=== PATIENT | female | born 1950 | race Caucasian/White ===

== ENCOUNTER → 2016-06-23 | Outpatient (CLI) | payer BC ==
[2016-06-23 11:20] LABS: C Reactive Protein 7.6 mg/L (<10.0)
== END | disposition home or self-care (01) ==
LOC: LABWHC1 10:10
PROVIDERS: ATTEND Internal Medicine
DX: E78.5 Hyperlipidemia, unspecified (principal); E55.9 Vitamin D deficiency, unspecified
CPT/HCPCS: 36415; 80061; 82306; 82550; 82785; 84439; 84443; 85652; 86140

== ENCOUNTER → 2016-06-29 | Outpatient (CLI) | payer BC ==
[2016-06-29 14:29] LABS: Basophils # (A) 0.2 k/uL (0-0.2); Basophils % (A) 2 %; CH 29.4; CHCM 33.3; Eosinophils # (A) 0.2 k/uL (0-0.7); Eosinophils % (A) 2 %; HDW 2.46; HGB 13.8 gm/dL (11.4-16.0); Luc # (Auto) 0.26; Luc % (Auto) 3; Lymphocytes # (A) 2.7 k/uL (1.0-4.8); Lymphocytes % (A) 30 %; MCH 28.4 pg (25.0-35.0); MCV 88.7 fL (80.0-100.0); Mean Platelet Volume 7.7; Monocytes # (A) 0.5 k/uL (0-1.0); Monocytes % (A) 6 %; Neutrophils # (A) 5.3 k/uL (1.3-7.7); Neutrophils % (A) 58 %; RBC 4.85 m/uL (3.80-5.40); RDW 12.2 % (11.5-15.5); WBC 9.2 k/uL (3.8-10.6); WBC (Perox) 9.64
[2016-06-29 14:36] LABS: Bilirubin, Delta 0.2 mg/dL (0.0-0.2); Total Bilirubin 0.5 mg/dL (0.2-1.3); Total Protein 7.4 g/dL (6.3-8.2)
== END | disposition home or self-care (01) ==
LOC: LABWHC1 14:03
PROVIDERS: ATTEND Internal Medicine
DX: K58.9 Irritable bowel syndrome, unspecified (principal)
CPT/HCPCS: 36415; 80076; 85025

== ENCOUNTER → 2017-01-03 | Outpatient (CLI) | payer BC | END | disposition home or self-care (01) | LOC: LABWHC1 10:43 | PROVIDERS: ATTEND Obstetrics & Gynecology Obstetrics | DX: R07.9 Chest pain, unspecified (principal) | CPT/HCPCS: 36415; 93005 ==

== ENCOUNTER → 2017-02-16 | Outpatient (CLI) | payer BC ==
[2017-02-16 16:43] LABS: Gliadin AB IgA, Deaminated NEGATIVE (NEGATIVE); Gliadin AB IgG, Deaminated NEGATIVE (NEGATIVE); Gliadin AB IgG, Unit <0.4 U/mL; Tis Transglutaminase IgA Unit <0.5 AI; Tis Transglutaminase IgG Unit 1.4 U/mL
== END | disposition home or self-care (01) ==
LOC: LABWHC1 02-11 12:16
PROVIDERS: ATTEND Internal Medicine
DX: K27.9 Peptic ulcer, site unspecified, unspecified as acute or chronic, without hemorrhage or perforation (principal); K90.0 Celiac disease; R19.7 Diarrhea, unspecified
CPT/HCPCS: 36415; 82941; 83516

== ENCOUNTER → 2017-07-12 | Outpatient (CLI) | payer MEDICARE, BC ==
[2017-07-12 09:07] LABS: Basophils # (A) 0.1 k/uL (0-0.2); Basophils % (A) 1 %; Eosinophils # (A) 0.3 k/uL (0-0.7); Eosinophils % (A) 4 %; HCT 43.2 % (34.0-46.0); HGB 13.9 gm/dL (11.4-16.0); Lymphocytes # (A) 2.2 k/uL (1.0-4.8); Lymphocytes % (A) 30 %; MCH 27.9 pg (25.0-35.0); MCHC 32.3 g/dL (31.0-37.0); MCV 86.4 fL (80.0-100.0); Mean Platelet Volume 7.3; Monocytes # (A) 0.5 k/uL (0-1.0); Monocytes % (A) 7 %; Neutrophils # (A) 4.2 k/uL (1.3-7.7); Neutrophils % (A) 57 %; Platelet Count 303 k/uL (150-450); RBC 4.99 m/uL (3.80-5.40); RDW 12.3 % (11.5-15.5); WBC 7.4 k/uL (3.8-10.6)
[2017-07-12 09:35] LABS: ALT 19 U/L (9-52); AST 15 U/L (14-36); Albumin 4.1 g/dL (3.5-5.0); Alkaline Phosphatase 60 U/L (38-126); Anion Gap 14 mmol/L; Blood Urea Nitrogen 17 mg/dL (7-17); Calcium 9.8 mg/dL (8.4-10.2); Carbon Dioxide 24 mmol/L (22-30); Chloride 106 mmol/L (98-107); Cholesterol 184 mg/dL (<200); Glucose 89 mg/dL (74-99); HDL Cholesterol 108 mg/dL (40-60); LDL Cholesterol,Calculated 65 mg/dL (0-99); Sodium 144 mmol/L (137-145); Total Bilirubin 0.4 mg/dL (0.2-1.3); Total Protein 6.7 g/dL (6.3-8.2); Triglycerides 57 mg/dL (<150)
== END | disposition home or self-care (01) ==
LOC: LABWHC1 08:02
PROVIDERS: ATTEND Internal Medicine
DX: E78.5 Hyperlipidemia, unspecified (principal); I10 Essential (primary) hypertension; Z78.0 Asymptomatic menopausal state
CPT/HCPCS: 36415; 80053; 80061; 82306; 84443; 85025

== ENCOUNTER → 2017-08-10 | Outpatient (CLI) | payer MEDICARE, BC ==
--- NOTE | 2017-08-11 08:55 | MM ---
Reason for exam: screening (asymptomatic). Last mammogram was performed 1 year and 7 months ago. History: Patient is postmenopausal. Benign stereotactic core biopsy of the left breast, May 13, 2003. Core biopsy of the left breast. Took hormonal contraceptives for 5 years beginning at age 22. Took estrogen for 8 years 1 month beginning at age 46. Physical Findings: A clinical breast exam by your physician is recommended on an annual basis and results should be correlated with mammographic findings. MG 3D Screening Mammo W/Cad Bilateral CC and MLO view(s) were taken. Prior study comparison: December 29, 2015, bilateral MG screening mammo w CAD. June 18, 2013, bilateral digital screening mammo w/CAD. There are scattered fibroglandular densities. Previous mammotome biopsy in the left breast. There is no discrete abnormality. ASSESSMENT: Benign, BI-RAD 2 RECOMMENDATION: Routine screening mammogram of both breasts in 1 year.
== END | disposition home or self-care (01) ==
LOC: RADMAMWWP 10:55
PROVIDERS: ATTEND Internal Medicine
DX: Z12.31 Encounter for screening mammogram for malignant neoplasm of breast (principal)
CPT/HCPCS: 77063; 77067

== ENCOUNTER → 2018-10-26 | Outpatient (CLI) | payer MEDICARE, BC ==
[2018-10-26 07:29] LABS: Basophils # (A) 0.1 k/uL (0-0.2); Basophils % (A) 1 %; Eosinophils # (A) 0.2 k/uL (0-0.7); Eosinophils % (A) 3 %; HCT 45.3 % (34.0-46.0); HGB 14.6 gm/dL (11.4-16.0); Lymphocytes # (A) 2.3 k/uL (1.0-4.8); Lymphocytes % (A) 30 %; MCH 28.5 pg (25.0-35.0); MCHC 32.2 g/dL (31.0-37.0); MCV 88.5 fL (80.0-100.0); Mean Platelet Volume 6.6; Monocytes # (A) 0.4 k/uL (0-1.0); Monocytes % (A) 5 %; Neutrophils # (A) 4.5 k/uL (1.3-7.7); Neutrophils % (A) 59 %; Platelet Count 330 k/uL (150-450); RBC 5.12 m/uL (3.80-5.40); RDW 13.3 % (11.5-15.5); WBC 7.7 k/uL (3.8-10.6)
[2018-10-26 12:06] LABS: T4, Free (Free Thyroxine) 1.2 ng/dL (0.80-1.80)
[2018-10-26 12:15] LABS: African American GFR (CKD) 77.2 (60.0-200.0); Albumin 4.6 g/dL (3.80-4.90); Albumin/Globulin Ratio 2.09 (1.60-3.17); Anion Gap 11.5 mmol/L (4.00-12.00); BUN/Creat Ratio 17.78 Ratio (12.00-20.00); Calcium 9.6 mg/dL (8.7-10.3); Carbon Dioxide 24.5 mmol/L (21.6-31.8); Globulin 2.2 g/dL (1.6-3.3); LDL Cholesterol,Calculated 60.4 mg/dL (0.0-131.0); Potassium 4.4 mmol/L (3.5-5.5); Total Bilirubin 0.6 mg/dL (0.2-1.2); Total Protein 6.8 g/dL (6.2-8.2); VLDL Calculation 12.6 mg/dL (5.00-40.00)
[2018-10-26 13:36] LABS: Erythrocyte Sedimentation Rate 5 mm/hr (0-20)
== END | disposition home or self-care (01) ==
LOC: LAB 06:54
PROVIDERS: ATTEND Internal Medicine
DX: E87.8 Other disorders of electrolyte and fluid balance, not elsewhere classified (principal); E78.5 Hyperlipidemia, unspecified; I10 Essential (primary) hypertension
CPT/HCPCS: 36415; 80053; 80061; 82550; 84439; 84443; 85025; 85652

== ENCOUNTER → 2018-12-18 | Outpatient (CLI) | payer MEDICARE, BC ==
--- NOTE | 2018-12-19 11:18 | MM ---
Reason for exam: screening (asymptomatic). Last mammogram was performed 1 year and 4 months ago. History: Patient is postmenopausal. Benign stereotactic core biopsy of the left breast, May 13, 2003. Core biopsy of the left breast. Took hormonal contraceptives for 5 years beginning at age 22. Took estrogen for 8 years 1 month beginning at age 46. Physical Findings: A clinical breast exam by your physician is recommended on an annual basis and results should be correlated with mammographic findings. MG 3D Screening Mammo W/Cad Bilateral CC and MLO view(s) were taken. Prior study comparison: August 10, 2017, bilateral MG 3d screening mammo w/cad. December 29, 2015, bilateral MG screening mammo w CAD. There are scattered fibroglandular densities. There are benign appearing vascular calcifications bilaterally. Previous mammotome biopsy in the left breast. There is no discrete abnormality. ASSESSMENT: Benign, BI-RAD 2 RECOMMENDATION: Routine screening mammogram of both breasts in 1 year.
== END | disposition home or self-care (01) ==
LOC: RADMAMWWP 08:27
PROVIDERS: ATTEND Internal Medicine
DX: Z12.31 Encounter for screening mammogram for malignant neoplasm of breast (principal)
CPT/HCPCS: 77063; 77067

== ENCOUNTER → 2019-02-12 | Outpatient (CLI) | payer MEDICARE, BC ==
--- NOTE | 2019-02-12 13:17 | XR ---
EXAMINATION TYPE: XR lumbosacral spine min 4V, XR thoracic spine complete DATE OF EXAM: 02/12/2019 CLINICAL HISTORY: Back pain after lifting injury TECHNIQUE: Frontal, lateral, and oblique images of the lumbar spine are obtained. 3 views of the thor acic spine were also obtained. COMPARISON: CT abdomen dated 01/06/2015 FINDINGS: There is a slight dextroscoliosis of the lower thoracic spine and thoracolumbar junction. Cholecystec britany clips are seen. Lung bases are well aerated. Slight right hemidiaphragm elevation. Mild diffuse osseous demineralization. Multilevel intervertebral disc space narrowing and anterior osteophytes of the thoracic spine. No vertebral body height loss or malalignment of the thoracic spine. There is a slight levoscoliosis of the lumbar spine. There are 5 lumbar type vertebral bodies identif ied. There is a compression deformity of the L1 vertebral body with height loss of approximately 30%. Very minimal retrolisthesis of L2 on L3 and L3 and L4 are seen. The images demonstrate neural forami nal narrowing on the left at L3-L4 and L4-5 appearing from facet arthropathy and on the right at L4-L 5. Multilevel facet arthropathy, intervertebral disc space narrowing and small anterior osteophytes are seen. The overlying soft tissue appears unremarkable. IMPRESSION: 1. Age-indeterminate L1 compression deformity, not present on the prior CT of 2014. Correlate with po int tenderness to determine acuity and determine need for MRI to evaluate for bone marrow edema. 2. Multilevel slight malalignment is likely on a degenerative basis with moderate degenerative change s of the spine. Malalignment appears similar to 2015. 3. S-shaped scoliosis of the thoracolumbar spine. 4. Ctig-en-zveiozyu multilevel degenerative disc disease of the thoracic spine. No vertebral body hei ght loss or malalignment of the thoracic spine. A Yellow level critical message alert has been initiated for Isaias Ny MD via the [employer] System on 02/12/2019 1:14 PM. This message alert has been sent to Isaias Ny MD via the preferences provided by the clinician for the receipt of Radiology Critical Findings. Mess age ID [id number].
== END ==
LOC: LABWHC1 12:23
PROVIDERS: ATTEND Internal Medicine
DX: M43.8X6 Other specified deforming dorsopathies, lumbar region (principal); M51.34 Other intervertebral disc degeneration, thoracic region; M41.85 Other forms of scoliosis, thoracolumbar region; M54.9 Dorsalgia, unspecified
CPT/HCPCS: 72072; 72110

== ENCOUNTER 2020-01-30 07:18 | Day surgery (SDC) | payer MEDICARE, BC ==
[2020-01-28 13:23] VITALS: BMI 30.2
[~2020-01-30 07:18] MED LIST: DEXAMETHASONE SOD PHOSPHATE 4 MG/ML 1 ML VIAL IV ONE; FAMOTIDINE 20 MG/2 ML VIAL IV ONE; LACTATED RINGERS 1,000 ML IV SCH; MIDAZOLAM 2 MG/2 ML VIAL IV PRN; ONDANSETRON 4 MG/2 ML VIAL IVP ONE; fentaNYL (PF) 50 MCG/ML 2 ML AMP IV PRN
[2020-01-30] MEDS ORDERED: OXYMETAZOLINE 0.05% NASL SPRAY 1 SPRAY BOTTLE ONE (07:45)
[2020-01-30] MEDS: OXYMETAZOLINE 0.05% NASL SPRAY 1 SPRAY BOTTLE NASAL ONE ×5 (07:57→08:18)
[2020-01-30] MEDS ORDERED: LIDOCAINE 1% (10MG/ML) FOR IV START INTRADERMA ONE (08:05)
[2020-01-30] MEDS ORDERED: fentaNYL (PF) 50 MCG/ML 2 ML AMP ONE (08:58)
[2020-01-30] MEDS ORDERED: MIDAZOLAM 2 MG/2 ML VIAL ONE (08:58)
[2020-01-30] MEDS ORDERED: LIDOCAINE 1% INJ 10MG/ML (20 ML MDV) ONE (08:58)
[2020-01-30] MEDS ORDERED: ePHEDrine SULFATE/0.9% NACL/PF 50 MG/5 ML SYRINGE IV ONE (08:58)
[2020-01-30] MEDS ORDERED: PROPOFOL 10 MG/ML 20 ML VIAL IV ONE (08:58)
[2020-01-30] MEDS ORDERED: SUCCINYLCHOLINE CHLORIDE 100 MG/5 ML SYR IV ONE (08:58)
[2020-01-30] MEDS ORDERED: LIDOCAINE 1%-EPI 1:100,000 20 ML VIAL SQ ONE ×2 (09:04→09:18)
[2020-01-30] MEDS ORDERED: BACITRACIN ZINC 500 UNIT/GM OINT 28.4 GM TUBE TOPICAL ONE ×2 (09:04→09:36)
[2020-01-30] MEDS ORDERED: LACTATED RINGERS 1,000 ML IV ONE (09:40)
--- NOTE | 2020-01-30 09:42 | P.OP ---
Date of Procedure: 01/30/20 Preoperative Diagnosis: Deviated nasal septum Inferior turbinate hypertrophy Postoperative Diagnosis: Same Procedure(s) Performed: Septoplasty Outfractured and submucous resection of the inferior turbinates Anesthesia: VELA Surgeon: Landry Sanchez Estimated Blood Loss (ml): 2 Pathology: other (Nasal septal cartilage) Condition: stable Disposition: PACU Indications for Procedure: This 69 white female with chronic nasal airway obstruction bilaterally Operative Findings: Nasal septum deviated to the right anteriorly to the left posteriorly with inferior turbinate hypertrophy bilaterally Description of Procedure: DESCRIPTION OF PROCEDURE: The patient was brought to the operative suite, placed in the supine position. The patient underwent induction of general anesthesia with oral endotracheal intubation without difficulty. The patient was prepped and draped in the usual aseptic fashion. 1% lidocaine with 1:100,000 epinephrine was infused submucosally on both sides of the nasal septum. While this was taking vasoconstrictive effect, the inferior turbinates were infractured with a Maverick elevator. Partial submucous resection of the inferior turbinates was performed with 2 mm microdebrider blade removing a portion of the submucosal soft tissue and inferior turbinate bone. The inferior turbinates were then outfractured with a Maverick elevator. A left hemitransfixion incision was then made and the mucoperichondrial and mucoperiosteal flap on the left elevated. Bony cartilaginous junction was disarticulated and mucoperiosteal flap on the right was elevated. Bony nasoseptal deformity were removed with Yovani forceps and an inferior cartilaginous strip was removed, leaving a full 1.5 cm caudal strut. Checking intranasally, this corrected the nasal septal deformities and the hemitransfixion incision was closed with running 4-0 chromic suture. The bilateral Koch airway splints coated in bacitracin ointment were placed in the nasal cavities and sutured transseptally with 4-0 nylon suture. The patient was then suctioned in an orogastric fashion. The patient was allowed to emerge from general anesthesia, having tolerated the procedure well and was extubated in the operating suite, transferred to postoperative recovery area in satisfactory condition.
[2020-01-30 09:59] VITALS: TEMP 97.1
[2020-01-30 10:19] VITALS: RESP 16
[2020-01-30 11:08] VITALS: BP 111/71; PULSE 72
== END 2020-01-30 11:45 | disposition home or self-care (01) ==
LOC: OR 07:18
PROVIDERS: ATTEND Otolaryngology
DX: J34.2 Deviated nasal septum (principal); J34.3 Hypertrophy of nasal turbinates; I10 Essential (primary) hypertension; F32.9 Major depressive disorder, single episode, unspecified; E07.9 Disorder of thyroid, unspecified; K21.9 Gastro-esophageal reflux disease without esophagitis; G47.33 Obstructive sleep apnea (adult) (pediatric); Z88.8 Allergy status to other drugs, medicaments and biological substances; Z79.890 Hormone replacement therapy; Z79.899 Other long term (current) drug therapy; Z90.710 Acquired absence of both cervix and uterus; Z98.890 Other specified postprocedural states; Z87.891 Personal history of nicotine dependence; Z83.79 Family history of other diseases of the digestive system; Z81.8 Family history of other mental and behavioral disorders
CPT/HCPCS: 88300; 30520; 30140; J2250; J1100; J2405; J0690; J2001; J3010; J0330; J2704

== ENCOUNTER 2020-07-25 08:33 | Day surgery (SDC) | payer MEDICARE, BC ==
[2020-07-22 14:57] VITALS: BMI 30.6
[~2020-07-25 08:33] MED LIST changes: -DEXAMETHASONE SOD PHOSPHATE 4 MG/ML 1 ML VIAL IV ONE; -FAMOTIDINE 20 MG/2 ML VIAL IV ONE; -MIDAZOLAM 2 MG/2 ML VIAL IV PRN; +MOXIFLOXACIN HCL 0.5% DROPS 3 ML BTL OP PRN; -ONDANSETRON 4 MG/2 ML VIAL IVP ONE; +TETRACAINE 0.5% OPHTH (PF) DROPS 4 ML BTL OP PRN; +TIMOLOL 0.5% OPHTH DROPS 5 ML BTL OP PRN; -fentaNYL (PF) 50 MCG/ML 2 ML AMP IV PRN
[2020-07-25 09:00] VITALS: TEMP 97
[2020-07-25] MEDS: CYCLOPENTOLATE 1% OPHTH SOLN 2 ML BTL OP PRN ×3 (09:04→09:20)
[2020-07-25] MEDS: PHENYLEPHRINE 2.5% OPHTH DRP 2ML OP PRN ×2 (09:07→09:15)
[2020-07-25] MEDS ORDERED: MIDAZOLAM 2 MG/2 ML VIAL ONE (10:02)
[2020-07-25] MEDS ORDERED: fentaNYL (PF) 50 MCG/ML 2 ML AMP ONE (10:02)
[2020-07-25] MEDS ORDERED: HYALURONATE SODIUM INTRAOCULAR 1 EACH SYRINGE (12MG/ML) INTRAOCULA ONE (10:05)
[2020-07-25] MEDS ORDERED: LIDOCAINE 1% (PF) 10MG/ML VIAL MISCELLANE ONE (10:06)
[2020-07-25] MEDS ORDERED: BALANCED SALT IRRIG SOLN COMB2 15 ML IRRIG.SOLN INTRAOCULA ONE (10:06)
[2020-07-25] MEDS ORDERED: EPINEPHrine (PF) 0.3 ML in BALANCED SALT IRRIG SOLN COMB2 500 ML IRRIGATION ONE (10:07)
--- NOTE | 2020-07-25 10:25 | P.OP ---
Date of Procedure: 07/25/20 Preoperative Diagnosis: NS & CS & PSC Postoperative Diagnosis: same Procedure(s) Performed: PIOL, OD Implants: [id number] 19.00 Anesthesia: MAC Surgeon: Edilberto Oliveros Pathology: none sent Condition: stable Disposition: same day Indications for Procedure: blurry vision Operative Findings: no complications
[2020-07-25 10:45] VITALS: BP 113/71; PULSE 59; RESP 18
--- NOTE | 2020-07-25 23:31 | OP ---
OPERATIVE REPORT DATE OF SURGERY: 07/25/2020 PROCEDURE: Phacoemulsification of cataract and intraocular lens implant of the right eye. PREOPERATIVE DIAGNOSIS: Nuclear sclerosis, cortical sclerosis and posterior subcapsular cataract, right eye. POSTOPERATIVE DIAGNOSIS: Nuclear sclerosis, cortical sclerosis and posterior subcapsular cataract, right eye. ESTIMATED BLOOD LOSS: Zero. SPECIMEN TAKEN: None. NARRATIVE: After obtaining the appropriate consent, the patient was brought to the operating room, where the patient was placed under cardiac monitoring and prepped and draped in the usual sterile manner. At the 11 o'clock position a 15-degree super sharp blade was used to create a paracentesis followed by instillation of 1% Xylocaine MPF 50:50 mix with BSS into the anterior chamber. This was followed by Amvisc to stabilize the anterior chamber. At the 9 o'clock position a self-sealing corneal flap incision was created using a 2.8 mm tiffanie keratome. A cystotome was used to initiate a continuous tear capsulorrhexis which was completed with the Utrata forceps. A Binkhorst cannula was used to hydrodissect the lens nucleus followed by hydrodelineation. Phacoemulsification of the lens was performed utilizing phacochop in 9.75 seconds at 8% power. The remaining cortical material was removed using the irrigation aspiration mode followed by additional 1% Xylocaine MPF into the anterior chamber followed by viscoelastic to stabilize the capsular bag. A [employer]ch [employer] Lomb MX 60E 19.0 diopters posterior chamber lens was placed into the capsular bag without difficulty. The remaining viscoelastic material was removed from the anterior chamber with the irrigation/aspiration. Balanced salt solution was used to normalize the intraocular pressure. The incision was checked for watertight integrity. The patient then received two drops of 0.5% Timolol followed by two drops Vigamox, was lightly patched and shielded in the usual manner. There were no complications from the procedure. The patient tolerated the procedure well and was returned to recovery in good condition. MMODL / IJN: [id number] /
== END 2020-07-25 11:03 | disposition home or self-care (01) ==
LOC: OR 08:33
PROVIDERS: ATTEND Ophthalmology
DX: H25.13 Age-related nuclear cataract, bilateral (principal); H25.043 Posterior subcapsular polar age-related cataract, bilateral; H53.9 Unspecified visual disturbance; H53.71 Glare sensitivity; E07.9 Disorder of thyroid, unspecified; I11.9 Hypertensive heart disease without heart failure; G25.81 Restless legs syndrome; G47.33 Obstructive sleep apnea (adult) (pediatric); Z87.891 Personal history of nicotine dependence; F32.9 Major depressive disorder, single episode, unspecified; K21.9 Gastro-esophageal reflux disease without esophagitis; Z90.710 Acquired absence of both cervix and uterus; Z98.890 Other specified postprocedural states; Z82.61 Family history of arthritis; Z82.49 Family history of ischemic heart disease and other diseases of the circulatory system; Z83.518 Family history of other specified eye disorder; Z82.3 Family history of stroke; Z79.890 Hormone replacement therapy; Z79.899 Other long term (current) drug therapy; Z88.8 Allergy status to other drugs, medicaments and biological substances
CPT/HCPCS: 66984; C1780; J2250; J0171; J3010; J2001

== ENCOUNTER 2020-08-06 12:16 | Day surgery (SDC) | payer MEDICARE, BC ==
[2020-08-01 15:33] VITALS: BMI 30.7
[~2020-08-06 12:16] MED LIST changes: +CYCLOPENTOLATE 1% OPHTH SOLN 2 ML BTL OP PRN; +LIDOCAINE 1% (10MG/ML) FOR IV START INTRADERMA PRN; +PHENYLEPHRINE 2.5% OPHTH DRP 2ML OP PRN
[2020-08-06 13:03] VITALS: RESP 16; TEMP 98.4
[2020-08-06] MEDS ORDERED: MIDAZOLAM 2 MG/2 ML VIAL ONE (13:07)
[2020-08-06] MEDS ORDERED: fentaNYL (PF) 50 MCG/ML 2 ML AMP ONE (13:07)
[2020-08-06] MEDS ORDERED: HYALURONATE SODIUM INTRAOCULAR 1 EACH SYRINGE (12MG/ML) INTRAOCULA ONE (13:25)
[2020-08-06] MEDS ORDERED: LIDOCAINE 1% (PF) 10MG/ML VIAL SQ ONE (13:26)
[2020-08-06] MEDS ORDERED: BALANCED SALT IRRIG SOLN COMB2 15 ML IRRIG.SOLN INTRAOCULA ONE (13:26)
--- NOTE | 2020-08-06 13:45 | P.OP ---
Date of Procedure: 08/06/20 Preoperative Diagnosis: NS & CS & PSC Postoperative Diagnosis: same Procedure(s) Performed: PIOL, OS Implants: [id number] 20.00 Anesthesia: MAC Surgeon: Edilberto Oliveros Pathology: none sent Condition: stable Disposition: same day Indications for Procedure: blurry vision Operative Findings: no complications
[2020-08-06 14:04] VITALS: PULSE 61
[2020-08-06 14:21] VITALS: BP 112/74
--- NOTE | 2020-08-06 21:01 | OP ---
OPERATIVE REPORT DATE OF SURGERY: 08/06/2020 PROCEDURE: Phacoemulsification of cataract and intraocular lens implant of the left eye. PREOPERATIVE DIAGNOSIS: Nuclear sclerosis, cortical sclerosis and posterior subcapsular cataract. POSTOPERATIVE DIAGNOSIS: Nuclear sclerosis, cortical sclerosis and posterior subcapsular cataract. ESTIMATED BLOOD LOSS: Zero. SPECIMEN TAKEN: None. NARRATIVE: After obtaining the appropriate consent, the patient was brought to the operating room. There the patient was placed under cardiac monitoring and prepped and draped in the usual sterile manner. At the 5 o'clock position a 15-degree super sharp blade was used to create a paracentesis followed by instillation of 1% Xylocaine MPF 50:50 mix with BSS into the anterior chamber. This was followed by Amvisc to stabilize the anterior chamber. At the 3 o'clock position a self-sealing corneal flap incision was created using 2.8 mm tiffanie keratome. A cystotome was used to initiate a continuous tear capsulorrhexis which was completed with the Utrata forceps. A Binkhorst cannula was used to hydrodissect the lens nucleus followed by hydrodelineation. Phacoemulsification of the lens was performed utilizing phacochop in 16.5 seconds at 12% power. The remaining cortical material was removed using the irrigation aspiration mode followed by additional 1% Xylocaine MPF into the anterior chamber followed by viscoelastic to stabilize the capsular bag. A [employer]ausch [employer] Lomb MX60E 20.0 diopters posterior chamber lens was placed into the capsular bag without difficulty. The remaining viscoelastic material was removed from the anterior chamber with the irrigation/aspiration. Balanced salt solution was used to normalize the intraocular pressure. The incision was checked for watertight integrity. The patient then received two drops of 0.5% timolol followed by two drops Vigamox, was lightly patched and shielded in the usual manner. There were no complications from the procedure. The patient tolerated the procedure well and was returned to Recovery in good condition. MMODL / IJN: [id number] /
== END 2020-08-06 14:24 | disposition home or self-care (01) ==
LOC: OR 12:16
PROVIDERS: ATTEND Ophthalmology
DX: H25.12 Age-related nuclear cataract, left eye (principal); H25.042 Posterior subcapsular polar age-related cataract, left eye; H53.71 Glare sensitivity; Z96.1 Presence of intraocular lens; H53.9 Unspecified visual disturbance; G25.81 Restless legs syndrome; K21.9 Gastro-esophageal reflux disease without esophagitis; I10 Essential (primary) hypertension; G47.33 Obstructive sleep apnea (adult) (pediatric); E07.9 Disorder of thyroid, unspecified; F32.9 Major depressive disorder, single episode, unspecified; Z90.49 Acquired absence of other specified parts of digestive tract; Z90.710 Acquired absence of both cervix and uterus; Z98.890 Other specified postprocedural states; Z82.1 Family history of blindness and visual loss; Z82.61 Family history of arthritis; Z82.49 Family history of ischemic heart disease and other diseases of the circulatory system; Z82.3 Family history of stroke; Z83.49 Family history of other endocrine, nutritional and metabolic diseases; Z80.9 Family history of malignant neoplasm, unspecified; Z79.890 Hormone replacement therapy; Z79.899 Other long term (current) drug therapy; Z88.8 Allergy status to other drugs, medicaments and biological substances
CPT/HCPCS: 66984; C1780; J2250; J3010; J2001

== ENCOUNTER → 2021-02-17 | Outpatient (CLI) | payer MEDICARE, BC ==
[2021-02-17 15:37] LABS: Basophils # (A) 0.08 X 10*3/uL (0.00-0.10); Basophils % (A) 1.2 %; Eosinophils # (A) 0.17 X 10*3/uL (0.04-0.35); Eosinophils % (A) 2.5 %; HCT 41.6 % (37.2-46.3); HGB 13.3 g/dL (12.0-15.0); Lymphocytes # (A) 1.81 X 10*3/uL (0.90-5.00); Lymphocytes % (A) 26.4 %; MCH 28.6 pg (27.0-32.0); MCV 89.5 fL (80.0-97.0); Monocytes # (A) 0.65 X 10*3/uL (0.20-1.00); Monocytes % (A) 9.5 %; Neutrophils # (A) 4.13 X 10*3/uL (1.80-7.70); Neutrophils % (A) 60.3 %; Platelet Count 384 X 10*3/uL (140-440); RBC 4.65 X 10*6/uL (4.10-5.20); WBC 6.85 X 10*3/uL (4.50-10.00)
[2021-02-17 17:48] LABS: Erythrocyte Sedimentation Rate 10 mm/Hr (0-30)
[2021-02-17 19:00] LABS: ALT 17 U/L (8-44); AST 16 U/L (13-35); African American GFR (CKD) 87.8 (60.0-200.0); Albumin 4.5 g/dL (3.8-4.9); Albumin/Globulin Ratio 1.96 (1.60-3.17); Alkaline Phosphatase 60 U/L (41-126); BUN/Creat Ratio 14.88 Ratio (12.00-20.00); Blood Urea Nitrogen 11.9 mg/dL (9.0-27.0); Calcium 9.7 mg/dL (8.7-10.3); Carbon Dioxide 23.7 mmol/L (21.6-31.8); Chloride 105 mmol/L (96-109); Chol/HDL Ratio 1.67 Ratio; Globulin 2.3 g/dL (1.6-3.3); Glucose 97 mg/dL (70-110); LDL Cholesterol,Calculated 64.1 mg/dL (0.0-131.0); Magnesium 2.3 mg/dL (1.5-2.4); Non-African American GFR(CKD) 75.8 (60.0-200.0); Phosphorus 4.4 mg/dL (2.4-5.1); Potassium 3.8 mmol/L (3.5-5.5); Sodium 146 mmol/L (135-145); Total Protein 6.8 g/dL (6.2-8.2); VLDL Calculation 8.86 mg/dL (5.00-40.00)
[2021-02-17 21:18] LABS: C Reactive Protein <0.30 mg/dL (0.00-0.80); Creatine Kinase 110 U/L (26-186)
== END | disposition home or self-care (01) ==
LOC: LABWHC1 08:38
PROVIDERS: ATTEND Internal Medicine
DX: Z00.00 Encounter for general adult medical examination without abnormal findings (principal); D64.9 Anemia, unspecified; E78.5 Hyperlipidemia, unspecified; E03.9 Hypothyroidism, unspecified; M81.0 Age-related osteoporosis without current pathological fracture; E55.9 Vitamin D deficiency, unspecified
CPT/HCPCS: 36415; 80053; 80061; 82306; 82550; 83721; 83735; 84100; 84439; 84443; 85025; 85652; 86140